=== PATIENT | male | born 1960 | race Caucasian/White ===

== ENCOUNTER → 2023-03-09 18:00 | Outpatient (REF) | payer OTHER, SELFPAY | LOC: MRI 3T 18:00 | PROVIDERS: ATTENDING PHYSICIAN Otolaryngology; FAMILY PHYSICIAN Nurse Practitioner Adult Health | DX: H90.3 Sensorineural hearing loss, bilateral (principal) | CPT/HCPCS: 70553; A9575 ==

== ENCOUNTER 2023-09-17 06:28 | Emergency (ER) | payer OTHER, SELFPAY ==
[2023-09-17 06:31] VITALS: BP 158/95
[2023-09-17 07:00] LABS: COVID-19 Antigen Positive (Negative)
--- NOTE | 2023-09-17 07:16 | ED.GENMED ---
History of Present Illness
General
Chief Complaint: Throat Problem
Source: patient and spouse
Exam Limitations: none
Time Seen by Provider: 09/17/23 07:03
Nursing documentation reviewed up to this point in time: agreed with
History of Present Illness
History of Present Illness:
Patient is a 63-year-old male who presents to the ER complaining of sore throat body aches fevers diarrhea since Tuesday. He presents today because he can barely swallow and reports he does not want to swallow he has not eaten for the past
several days and is not drinking today because of pain. No other sick contacts at home. Patient was found to be COVID-positive prior to my exam. Pt was not aware he was COVID +.
Past History
Past History
ED Past Medical History: CVA (cva and tia) and Hypothyroidism
ED Past Surgical History: Appendectomy
Social History
Tobacco: Non-smoker
Alcohol: None
Drug: None
Personal:
Living: with family
Employment: Employed (Self-employed)
Family History
Family History: Other (Noncontributory)
Review of Systems
Review of Systems
Allergies reviewed?: Yes
All Other Systems: ROS reviewed and negative except as documented in HPI and ROS
Constitutional: Reports fever (subjective ), fatigue and chills
Respiratory: Reports no symptoms
Cardiac: Reports no symptoms
ABD/GI: Reports diarrhea
: Reports no symptoms
Skin: Reports no symptoms
Psychiatric: Reports no symptoms
Phy Exam
General Physical Exam
General Presentation: no apparent distress
General age: appears stated age
General Skin: warm and dry
General Habitus: normal
General Mental: alert
General Hydration: appears well hydrated
Cardiovascular Exam
Cardiovascular Exam: regular rate/rhythm, no murmur and normal peripheral pulses
Pulmonary Exam
Pulmonary Exam: lungs clear and no respiratory distress
Neurological Exam
Neurological Exam: alert and oriented x3
Musculoskeletal Exam
Musculoskeletal Exam: full ROM
Skin Exam
Skin Exam: normal color and warm/dry
Psychiatric Exam
Psychiatric Exam: normal mood/affect
Course
Orders/Labs/Results
Orders:
Orders
09/17/23 06:37
COVID-19 Antigen Urgent
Source: Nasal Swab
09/17/23 07:16
IV Insert/Care/Rem.- Treatment PRN
0.9% Sodium Chloride 1000 ml [Nss] 1,000 ml IV BOLUS
Ketorolac [Toradol] 15 mg IV NOW STA
09/17/23 07:41
Acetaminophen [Tylenol Suspension] 650 mg PO NOW STA
Viscous Lidocaine 2% [Xylocaine Viscous Cup] 15 ml PO NOW STA
09/17/23 07:53
Acetaminophen [Tylenol Oral Solution] 650 mg .ROUTE .STK-MED ONE
09/17/23 08:04
Complete Blood Count/With Diff Urgent
Comprehensive Metabolic Panel Urgent
09/17/23 08:39
Acetaminophen [Tylenol Oral Solution] 650 mg PO NOW STA
Abnormal Lab Results
09/17/23 09/17/23
06:37 08:04
MCH 32.0 H pg
(27.0-31.0)
Absolute Lymphs (auto) 0.9 L 10^3/uL
(1.2-3.4)
Absolute Monos (auto) 0.9 H 10^3/uL
(0.1-0.6)
Lymphocytes % 15.8 L %
(20.5-51.1)
Monocytes % 15.8 H %
(1.7-9.3)
SARS-CoV-2 Antigen Positive A
(Negative)
09/17/23 08:04
09/17/23 08:04
Vital Signs
Initial and Last Documented VS:
Initial Vital Signs
Temp Pulse Resp BP Pulse Ox
99.2 F 95 17 158/95 98
09/17/23 06:31 09/17/23 06:31 09/17/23 06:31 09/17/23 06:31 09/17/23 06:31
Last Documented Vital Signs
Temp Pulse Resp BP Pulse Ox
99.2 F 95 17 108/65 95
09/17/23 06:31 09/17/23 06:31 09/17/23 06:31 09/17/23 09:00 09/17/23 09:15
MDM/Problems Addressed
Differential Diagnosis Includes:
Not limited to viral syndrome, COVID
MDM/Problems Addressed:
Patient is a 63-year-old male who has had sore throat since Tuesday diarrhea but he aches fevers. Patient was found to be COVID-positive prior to my exam. He on exam however is nontoxic-appearing lungs are clear not short of breath not hypoxic.
His primary complaint is sore throat and reports he is not drinking water and can barely swallow. On exam his pharynx is patent. It is red there is no exudate his uvula is midline he is not drooling. He has no acute distress. He was given fluids
and Toradol along with liquid Tylenol lidocaine for sore throat. He is now feeling much better. Labs are unremarkable. Patient was offered Paxlovid but wishes to hold off this is reasonable as he is very well-appearing discussed supportive care.
*Critical Care Note
Total Time (30-74mins, 75-104mins- exclusive of procedures): Not Applicable
ED Attending Note
-
Portions of this chart may have been created with voice recognition software.� Occasional wrong word or��sound alike� substitutions may have occurred due to the inherent limitations of voice recognition software.
Discharge Plan
Departure
Patient Disposition: Home (Routine Discharge)
Date of Disposition: 09/17/23
Time of Disposition: 08:54
Patient with high blood pressure during this ER visit?: Yes
Condition: Fair
Covid-19: Not Applicable
Discharge Problem:
COVID-19
Instructions: COVID-19 ED, BLOOD PRESSURE
Prescriptions:
No Action
levothyroxine 75 MCG tablet
75 mcg PO DAILY
Benifiber
1 tab PO DAILY
Ulcetrol
1 tab PO DAILY
dicyclomine 20 MG tablet
20 mg PO QIDPRN PRN (Reason: abdominal pain) Qty: 30 0RF
Referrals:
Heriberto Kurtz CRNP [Family Provider] -
Activity Restrictions/Additional Instructions:
As discussed supportive care,..... be sure to stay well-hydrated and get plenty of rest.
Alternate between Tylenol and ibuprofen for sore throat fever chills and bodyaches. You may gargle with warm salt water several times a day. Also as discussed it is recommended that you get Cepacol lozenges [id number] for sore throat.
Return to the ER however if any worsening of symptoms if any difficulty breathing if you are unable to tolerate or swallow your own secretions or drink oral fluids.
Follow-up with your family doctor next several days and return if any worsening of symptoms
Interventions
Interventions:
*Risk Screen - Suicide Last Done: 09/17/23 06:31
*General Assessment Last Done: 09/17/23 06:31
*Neglect/Abuse Screening Last Done: 09/17/23 06:31
ED- Fall Risk Assessment Last Done: 09/17/23 06:35
*ED COVID-19 Vaccine History Last Done: 09/17/23 06:31
Discharge Date and Time
Print Language: ARABIC
[2023-09-17 08:18] VITALS: BP 122/79
[2023-09-17 08:32] LABS: % Basophils 0.5 % (0-2); % Eosinophils 0.7 % (0-6); % Immature Granulocytes 0.2 % (0-0.5); % Lymphocytes 15.8 % (20.5-51.1); % Monocytes 15.8 % (1.7-9.3); Absolute Lymphocytes 0.9 10^3/uL (1.2-3.4); Absolute Monocytes 0.9 10^3/uL (0.1-0.6); Hematocrit 44.2 % (39.0-52.0); Hemoglobin 15.6 g/dL (13.0-18.0); Mean Corp Hgb Conc. 35.3 g/dL (33.0-37.0); Mean Corpuscular Volume 90.6 fL (80.0-94.0); Mean Platelet Volume 10.1 fL (7.4-10.4); Nucleated Red Blood Cells % 0 % (-); Platelet Count 204 10^3/uL (130-400); Red Blood Cell Count 4.88 10^6/uL (4.70-6.10); Red Cell Dist. Width 11.9 % (11.5-14.5)
[2023-09-17] MEDS: NSS 1000 IV (08:37)
[2023-09-17] MEDS: TORADOL 15 MG IV (08:38)
[2023-09-17] MEDS: XYLOCAINE VISCOUS CUP 15 ML PO (08:38)
[2023-09-17] MEDS: TYLENOL ORAL SOLUTION 650 MG PO (08:39)
[2023-09-17 08:45] LABS: ALT (SGPT) 16 U/L (0-50); AST (SGOT) 22 U/L (17-59); Albumin 4.4 g/dl (3.5-5.0); Alkaline Phosphatase 68 U/L (38-126); Blood Urea Nitrogen 20 mg/dl (9-20); Calcium 9.4 mg/dl (8.4-10.2); Carbon Dioxide 23 mmol/L (22-30); Chloride 105 mmol/L (98-107); Glucose 93 mg/dl (70-99); Potassium 4.6 mmol/L (3.5-5.1); Sodium 138 mmol/L (135-145); Total Bilirubin 0.7 mg/dl (0.2-1.3); Total Protein 6.4 g/dl (6.3-8.2); eGFR > 60.00
[2023-09-17 09:00] VITALS: BP 108/65
== END 2023-09-17 09:30 | disposition home or self-care (01) ==
LOC: EMR 06:28
PROVIDERS: Nurse Practitioner; Student in an Organized Health Care Education/Training Program; EMERGENCY PHYSICIAN Emergency Medicine; FAMILY PHYSICIAN Nurse Practitioner Adult Health
DX: U07.1 COVID-19 (principal); R19.7 Diarrhea, unspecified; Z11.52 Encounter for screening for COVID-19; R03.0 Elevated blood-pressure reading, without diagnosis of hypertension; E03.9 Hypothyroidism, unspecified; Z86.73 Personal history of transient ischemic attack (TIA), and cerebral infarction without residual deficits; Z88.0 Allergy status to penicillin; Z91.030 Bee allergy status
CPT/HCPCS: 99284; 96374; 96361; 80053; 85025; 87811